=== PATIENT | male | born 1975 | race Caucasian/White ===

== ENCOUNTER 2023-08-28 01:52 | Emergency (ER) | payer OTHER, SELFPAY ==
[2023-08-28 02:01] VITALS: BP 125/86; PULSE 93; RESP 16; TEMP 36.7; O2SAT 95; BMI 35.2
--- NOTE | 2023-08-28 02:16 | ED_ITS ---
HPI - Fall General Chief Complaint: Fall Stated Complaint: FELL Time Seen by Provider: 08/28/23 02:11 Source: patient Mode of arrival: Wheelchair Limitations: no limitations History of Present Illness HPI Narrative: patient states he was shooting billiards in the basement with friends and drinking. loss his balance and fell striking his forehead on the stairs. lacerated his forehead. Denies other injuries. No nausea or dizziness. No neck pain or extremity weakness MD complaint: Reports fall Related Data Home Medications Medication Instructions Recorded Confirmed atorvastatin 10 mg tablet 10 mg PO DAILY 08/28/23 08/28/23 dapagliflozin propanediol 10 mg 10 mg PO DAILY 08/28/23 08/28/23 tablet (Farxiga) losartan 50 mg tablet 50 mg PO DAILY 08/28/23 08/28/23 Allergies Allergy/AdvReac Type Severity Reaction Status Date / Time codeine AdvReac Nausea Verified 08/28/23 02:06 Review of Systems ROS Status of ROS 10 or more systems reviewed and unremark able except as noted in history and below PFSH PFSH Social History Smoking status: Former smoker Exam Constitutional Vital Signs, click to edit/add: Last Vital Signs Temp 98.1 F 08/28/23 02:01 Pulse 93 H 08/28/23 02:01 Resp 16 08/28/23 02:01 BP 125/86 08/28/23 02:01 Pulse Ox 95 08/28/23 02:01 O2 Del Method Room Air 08/28/23 02:01 Common normals: no apparent distress, oriented x3, healthy appearing, alert and well nourished HENMT Other: 7cm lac right forehead Eye Common normals: EOMs intact bilaterally and conjunctivae normal Chest Common normals: inspection of chest normal Respiratory Common normals: normal respiratory effort and clear to auscultation bilaterally Cardio Common normals: regular rate, regular rhythm, S1 normal heart sound and S2 normal heart sound GI Common normals: Normal to inspection, nondistended, normoactive bowel sounds present and soft to palpation Extremity Common normals: normal to inspection Neuro Common normals: CN's II-XII intact bilaterally and moves all extremities Psych Appearance: grossly normal Course Vital Signs Vital signs: Vital Signs Temperature 98.1 F 08/28/23 02:01 Pulse Rate 93 H 08/28/23 02:01 Respiratory Rate 16 08/28/23 02:01 Blood Pressure 125/86 08/28/23 02:01 Pulse Oximetry 95 08/28/23 02:01 Oxygen Delivery Method Room Air 08/28/23 02:01 Temperature 98.1 F 08/28/23 02:01 Pulse Rate 93 H 08/28/23 02:01 Respiratory Rate 16 08/28/23 02:01 Blood Pressure 125/86 08/28/23 02:01 Pulse Oximetry 95 08/28/23 02:01 Oxygen Delivery Method Room Air 08/28/23 02:01 MDM - Fall MDM Narrative Medical decision making narrative: patient intoxicated. tripped striking his head on basement stairs. States he vomited. has 9cm lac right forehead into SQ space. also small cut bridge of the nose and a contusion of his forehead. Patient admits he is intoxicated. He did not want any labs and scans. His is in the room and is agreement at this time his laceration was repaired without incident. He is discharged home on augmentin Discharge Plan Discharge Chief Complaint: Fall Clinical Impression: Facial laceration, Head injury, Acute alcohol intoxication Patient Disposition: Home, Self-Care Time of Disposition Decision: 03:30 Condition: Good Prescriptions / Home Meds: No Action atorvastatin 10 mg tablet 10 mg PO DAILY losartan 50 mg tablet 50 mg PO DAILY Farxiga 10 mg tablet 10 mg PO DAILY Instructions: Laceration (ED), Head Injury (DC), Alcohol Intoxication (DC) Additional Instructions: have stitches removed in 5-6 days Stand Alone Forms: Portal Instructions Referrals: Physician,Non-Staff, MD [Primary Care Provider] - 1 week Discharge Date/Time: 08/28/23 03:40 Procedures ED Procedure Instructions Procedures Procedures: 1% lido with epi, betadine, saline. closed with #3 5.0 vicryl and # 10 6.0 nylon stitches. Tolerated well. no complications 9cm lac into SQ space
[2023-08-28] MEDS: LIDOCAINE HCL 2%-EPINEPHRINE 1:200,000 20 ML MDV INJ (03:10)
[2023-08-28] MEDS: AMOXICILLIN/POTASSIUM CLAV 1 TAB TABLET PO (03:38)
--- NOTE | 2023-08-28 03:52 | PC.NURSE ---
Dr placed 3 internal sutures and 10 external sutures. Area cleansed with saline
== END 2023-08-28 03:40 | disposition home or self-care (01) ==
PROVIDERS: Emergency Provider Internal Medicine
DX: S01.81XA Laceration without foreign body of other part of head, initial encounter (principal); S09.90XA Unspecified injury of head, initial encounter; F10.129 Alcohol abuse with intoxication, unspecified; W19.XXXA Unspecified fall, initial encounter; Z79.899 Other long term (current) drug therapy; Z87.891 Personal history of nicotine dependence; W01.198A Fall on same level from slipping, tripping and stumbling with subsequent striking against other object, initial encounter
CPT/HCPCS: 12015; 80048; 80320; 99284